=== PATIENT | male | born 1950 | race Caucasian/White ===

== ENCOUNTER 2019-12-24 00:28 | Inpatient (IN) | payer MEDICARE, OTHER ==
[~2019-12-24] VITALS: Ht 182.9 cm; Wt 70.0 kg
[2019-12-24] VITALS (7 sets, daily range): BP systolic 112–144; BP diastolic 52–82
--- NOTE | 2019-12-24 00:47 | NUR ---
Dr. Craft at bedside for MSE
[2019-12-24] MEDS ORDERED: IPRATROPIUM BROMIDE 0.5 MG/2.5 ML NEBU NEB ONE (01:00)
[2019-12-24] MEDS ORDERED: predniSONE 10 MG TABLET PO ONE (01:00)
[2019-12-24] MEDS ORDERED: ALBUTEROL SULFATE 2.5 MG/3 ML NEBU NEB ONE ×4 (01:00→03:00)
[2019-12-24] MEDS ORDERED: predniSONE 50 MG TABLET ONE (01:02)
[2019-12-24] MEDS ORDERED: predniSONE 10 MG TABLET ONE (01:02)
--- NOTE | 2019-12-24 01:05 | NUR ---
X-ray at bedside
[2019-12-24] MEDS ORDERED: IPRATROPIUM BROMIDE 0.5 MG/2.5 ML NEBU ONE (01:09)
[2019-12-24] MEDS ORDERED: ALBUTEROL SULFATE 2.5 MG/3 ML NEBU ONE ×4 (01:09→03:17)
--- NOTE | 2019-12-24 01:12 | NUR ---
Respiratory at bedside
[2019-12-24 01:19] LABS: CREATININE 1.1 mg/dL (0.6-1.3); POTASSIUM 4.2 mmol/L (3.5-5.1)
[2019-12-24 01:20] LABS: BASOPHILS % (AUTO) 0.4 % (0.0-2.0); EOSINOPHILS % (AUTO) 0.5 % (0.0-7.0); HEMATOCRIT 43.8 % (36.7-47.1); HEMOGLOBIN 14.7 g/dL (12.5-16.3); LYMPHOCYTES # (AUTO) 0.7 K/uL (20.0-40.0); MEAN CORPUSCULAR HEMOGLOBIN 30.2 uug (23.8-33.4); MEAN CORPUSCULAR HGB CONC 34 g/dL (32.5-36.3); MEAN CORPUSCULAR VOLUME 89.8 fL (73.0-96.2); MONOCYTES # (AUTO) 0.5 K/uL (2.0-10.0); MONOCYTES % (AUTO) 8.4 % (0.0-11.0); NEUTROPHILS # (AUTO) 4.7 K/uL (1.8-8.9); NEUTROPHILS % (AUTO) 78.7 % (38.5-71.5); PLATELET COUNT (AUTO) 174 K/uL (152-348); RED BLOOD CELL COUNT(AUTO) 4.88 MIL/uL (4.06-5.63)
[2019-12-24 01:31] LABS: BILIRUBIN,DIRECT 0.1 mg/dL (0.0-0.2); BILIRUBIN,TOTAL 0.2 mg/dL (0.2-1.0); TOTAL PROTEIN, SERUM 6.8 g/dL (6.4-8.2)
--- NOTE | 2019-12-24 04:23 | NUR ---
Pt. admitted to Telemetry , under care of Dr. Granado Belongs List completed
[2019-12-24] MEDS ORDERED: MORPHINE SULFATE 2 MG/1 ML DISP.SYRIN IV PRN (04:30)
[2019-12-24] MEDS ORDERED: ONDANSETRON 4 MG/2 ML VIAL IV PRN (04:30)
[2019-12-24] MEDS ORDERED: ACETAMINOPHEN 325 MG TABLET PO PRN (04:30)
[2019-12-24] MEDS ORDERED: HYDROCODONE/APAP 5-325MG TABLET PO PRN (04:30)
[2019-12-24] MEDS ORDERED: MAGNESIUM HYDROXIDE 30 ML LIQUID UDC PO PRN (04:30)
[2019-12-24] MEDS ORDERED: LORAZEPAM 1 MG TABLET PO ONE (05:00)
[2019-12-24] MEDS ORDERED: LORAZEPAM 1 MG TABLET PO PRN (05:00)
[2019-12-24] MEDS ORDERED: LORAZEPAM 1 MG TABLET ONE (05:00)
--- NOTE | 2019-12-24 05:00 | NUR ---
RECEIVED PT IN ER VIA [facility]. UNDER THE CARE OF DR. PATRICK. DX: COPD EXACERBATION. BELONGING LIST NOTED. PENITENTIARY ASSESSMENT DONE. SAFETY AND COMFORT PROVIDED. WILL CONTINUE TO MONITOR.
[2019-12-24] MEDS ORDERED: AZITHROMYCIN 250 MG TABLET PO SCH (05:01)
--- NOTE | 2019-12-24 06:31 | NUR ---
PT SLEPT INTERMITTENTLY. PT IN NO ACUTE DISTRESS. IV INTACT. PT REFUSED TO TAKE OFF HIS CLOTHES AND [facility]. PT "GROGGY" BECAUSE PT WAS GIVEN [facility]. PRESCRIBED MEDICATION GIVEN AND PT TOLERATED IT WELL. SAFETY AND COMFORT PROVIDED. ALL NEEDS ARE MET. WILL ENDORSE TO INCOMING NURSE FOR CONTINUITY OF CARE.
[2019-12-24] MEDS: IPRATROPIUM BROMIDE 0.5 MG/2.5 ML NEBU NEB SCH ×5 (07:09→22:53)
[2019-12-24] MEDS: ALBUTEROL SULFATE 2.5 MG/3 ML NEBU NEB SCH ×5 (07:09→22:53)
--- NOTE | 2019-12-24 07:30 | NUR ---
Patient calm and comfortable with no signs of distress ; patient will continue to be monitored.
[2019-12-24] MEDS: methylPREDNISolone SOD SUCC 40 MG/ML VIAL IV SCH ×4 (08:00→20:58)
[2019-12-24] MEDS: ENOXAPARIN SODIUM 40 MG/0.4 ML DISP.SYRIN SQ SCH (08:43)
[2019-12-24] MEDS: NICOTINE 14 MG/24HR PATCH TD SCH (08:44)
[2019-12-24 23:03] LABS: *BILIRUBIN,URIN NEGATIVE (NEGATIVE); *BLOOD, URINE NEGATIVE (NEGATIVE); *CLARITY,URINE CLEAR (CLEAR); *COLOR,URINE YELLOW (YELLOW); *KETONES,URINE NEGATIVE (NEGATIVE); *UROBILINOGEN,URINE 0.2 E.U./dl (NORMAL); LEUKOCYTE ESTERASE ,URINE NEGATIVE (NEGATIVE); NITRITE, URINE NEGATIVE (NEGATIVE); PH,URINE 5.5 (5.0-8.0); UGLUCOSE NEGATIVE (NEGATIVE)
[2019-12-25] MEDS: ALBUTEROL SULFATE 2.5 MG/3 ML NEBU NEB SCH ×5 (02:54→20:15)
[2019-12-25] MEDS: IPRATROPIUM BROMIDE 0.5 MG/2.5 ML NEBU NEB SCH ×5 (02:54→20:15)
[2019-12-25 03:49] VITALS: BP 127/82
--- NOTE | 2019-12-25 05:54 | NUR ---
Patient calm and comfortable with no signs of distress; patient new placement of midline; patient medication compliant ; patient compliant with breathing treatment ; patient sleepy through out shift.
[2019-12-25] MEDS: methylPREDNISolone SOD SUCC 40 MG/ML VIAL IV SCH ×2 (06:21→13:39)
[2019-12-25] MEDS ORDERED: AZITHROMYCIN 250 MG TABLET PO SCH (09:00)
[2019-12-25] MEDS: ENOXAPARIN SODIUM 40 MG/0.4 ML DISP.SYRIN SQ SCH (09:00)
[2019-12-25] MEDS: NICOTINE 14 MG/24HR PATCH TD SCH (09:02)
--- NOTE | 2019-12-25 09:18 | NUR ---
Pt refused ABG, does not want any needles, unable to obtain sample.. RN notified and aware of Refusal..
--- NOTE | 2019-12-25 09:30 | NUR ---
PATIENT REFUSED ABG TEST PER RT. REFUSED LOVENOX AND DR. DOMINGO ALREADY AWARE.
--- NOTE | 2019-12-25 11:00 | NUR ---
SEEN BY DR KLEIN FOR FOLLOW-UP, WILL DC PATIENT HOME
[2019-12-25 11:25] VITALS: BP 119/78
--- NOTE | 2019-12-25 13:30 | NUR ---
PHARMACIST GAVE EDUCATION AND INSTRUCTIONS REGARDING HIS DISCHARGE MEDICATIONS.
[2019-12-25 15:10] VITALS: BP 144/87
--- NOTE | 2019-12-25 15:40 | NUR ---
WAITING FOR FAMILY TO PICK -UP PATIENT FOR DISCHARGE
--- NOTE | 2019-12-25 16:12 | NUR ---
STILL WAITING FOR PATIENT'S FRIEND, MITRA, FOR PICK-UP. CALLED AND LEFT MESSAGE TWICE.
--- NOTE | 2019-12-25 18:58 | NUR ---
DISCHARGED HOME STABLE PICKED-UP BY MITRA VIA PRIVATE CAR
== END 2019-12-26 04:46 | disposition home or self-care (01) | DRG 192 ==
LOC: ER 00:32 → TELE3 04:54 → MEDSURG3 12-25 17:30
PROVIDERS: ADMIT Nurse Practitioner Acute Care
PROC: 05H933Z Insertion of Infusion Device into Right Brachial Vein, Percutaneous Approach (ICD-10-PCS; principal; 2019-12-24)
DX: J44.1 Chronic obstructive pulmonary disease with (acute) exacerbation (principal); F17.210 Nicotine dependence, cigarettes, uncomplicated; Z79.51 Long term (current) use of inhaled steroids; E88.09 Other disorders of plasma-protein metabolism, not elsewhere classified; Z98.890 Other specified postprocedural states; F32.9 Major depressive disorder, single episode, unspecified
CPT/HCPCS: 36415; 70030-TC; 71045; 84443; 85025; 93005; 94640; 94664; G0378; J1650; J2920; J3590; J7512; Q0144